=== PATIENT | male | born 1990 | race Caucasian/White ===

== ENCOUNTER 2019-03-24 05:42 | Inpatient (IN) | payer OTHER ==
[~2019-03-24] VITALS: Ht 172.7 cm; Wt 63.6 kg
[2019-03-24 06:53] LABS: HEMATOCRIT 42.3 % (42.0-52.0); HEMOGLOBIN 13.5 g/dl (13.5-17.5); MEAN CORPUSCULAR HEMOGLOBIN 27.4 pg (27.0-33.0); MEAN CORPUSCULAR HGB CONC 31.9 g/dl (32.0-36.5); MEAN CORPUSCULAR VOLUME 85.8 fl (80.0-96.0); PLATELET COUNT, AUTOMATED 390 10^3/uL (150-450); RED BLOOD COUNT 4.93 10^6/uL (4.30-6.10); WHITE BLOOD COUNT 5.8 10^3/uL (4.0-10.0)
[2019-03-24] MEDS ORDERED: ADACEL/BOOSTRIX VACCINE (DIPHTH/PERTUSS/ACELL/TETANUS)0.5ML SYR (90715) IM ONE (07:00)
[2019-03-24 07:08] LABS: AMPHETAMINES LEVEL URINE NEGATIVE (NEGATIVE); BARBITURATES URINE NEGATIVE (NEGATIVE); BENZODIAZEPINES URINE NEGATIVE (NEGATIVE); CANNABINOIDS URINE POSITIVE (NEGATIVE); COCAINE METABOLITE URINE NEGATIVE (NEGATIVE); METHADONE URINE NEGATIVE (NEGATIVE); OPIATES URINE NEGATIVE (NEGATIVE); PHENCYCLIDINE URINE NEGATIVE (NEGATIVE)
[2019-03-24 07:20] LABS: ACETAMINOPHEN LEVEL < 2.0 UG/ML (10.0-30.0); ALBUMIN 4.3 GM/DL (3.2-5.2); ALT/SGPT 20 U/L (12-78); BILIRUBIN,DIRECT 0.1 MG/DL (0.0-0.2); BILIRUBIN,TOTAL 0.4 MG/DL (0.2-1.0); BLOOD UREA NITROGEN 6 MG/DL (7-18); CALCIUM LEVEL 9.2 MG/DL (8.5-10.1); CARBON DIOXIDE LEVEL 25 MEQ/L (21-32); CHLORIDE LEVEL 101 MEQ/L (98-107); ETHYL ALCOHOL (ETHANOL) 0.115 % (0.000-0.010); GLOMERULAR FILTRATION RATE > 60.0 (>60); GLUCOSE, FASTING 126 MG/DL (70-100); POTASSIUM SERUM 3.4 MEQ/L (3.5-5.1); SALICYLATE LEVEL < 1.7 MG/DL (5.0-30.0); SODIUM LEVEL 138 MEQ/L (136-145); TOTAL PROTEIN 8.3 GM/DL (6.4-8.2)
[2019-03-24 07:55] LABS: FREE T4 1.44 NG/DL (0.76-1.46)
[2019-03-24 08:55] LABS: HEMOGLOBIN A1c 5.7 %
[2019-03-24] MEDS ORDERED: POTASSIUM CHLORIDE 10 MEQ SR TABLET PO ONE (09:30)
[2019-03-24 10:05] LABS: MAGNESIUM LEVEL 2.2 MG/DL (1.8-2.4)
[2019-03-24] MEDS ORDERED: traZODone 50 MG TAB PO PRN (10:45)
[2019-03-24] MEDS ORDERED: ACETAMINOPHEN TAB 650MG DOSE (2X325MG) PO PRN (10:45)
[2019-03-24] MEDS ORDERED: MOM 30ML SUSPENSION UDC PO PRN (10:45)
[2019-03-24] MEDS ORDERED: MAALOX 30 ML SUSP *UDC PO PRN (10:45)
[2019-03-24] MEDS ORDERED: LORazepam 2 MG TAB PO PRN (10:45)
[2019-03-24 12:55] VITALS: BP 126/71
--- NOTE | 2019-03-24 13:38 | CR.PDOC ---
General Date of Consultation: Mar 24, 2019 Referring Provider: A Consultation REASON FOR CONSULTATION/CHIEF COMPLAINT: Physical examination HISTORY OF PRESENT ILLNESS: Patient is 28 years old male w/o significant past medical history, who was admitted in the hospital after suicidal attempt. He denied any cardiovascular problem, breathing problem, GI problem or dysuria. He denies fever, chills, nausea, vomiting, shortness of breath, palpitations, diarrhea or dysuria ALLERGIES: Please see below. HOME MEDICATIONS: Please see below. PAST MEDICAL HISTORY: None PAST SURGICAL HISTORY: None FAMILY HISTORY: Father: Healthy Mother: Healthy SOCIAL HISTORY: Marital status and/or living arrangements: Single Tobacco use: Denied ETOH: Denied Illicit drug use: Denied IV drug use: Denied PHYSICAL EXAMINATION: VITAL SIGNS: Please see below. GENERAL APPEARANCE: NAD HEENT: PERRLA, EOMI RESPIRATORY: CTA CARDIOVASCULAR: S1-S2 ABDOMEN: Nontender nondistended EXTREMITIES: No swelling NEUROLOGICAL: Cranial nerves from 2-12 intact LABORATORY DATA: Please see below. ASSESSMENT/PLAN: Patient does not have any acute diseases besides of his psychiatric diseases. Vital Signs/I&O Vital Signs Date Time Temp Pulse Resp B/P (MAP) Pulse Ox O2 Delivery O2 Flow Rate FiO2 03/24/19 12:55 98.0 82 16 126/71 (89) 98 Room Air Laboratory Data Labs 24H Laboratory Tests 2 03/24/19 06:29: Nucleated Red Blood Cells % (auto) 0.0, Urine Opiates Screen NEGATIVE, Urine Methadone Screen NEGATIVE, Urine Barbiturates Screen NEGATIVE, Urine Phencyclidine Screen NEGATIVE, Urine Amphetamines Screen NEGATIVE, Urine Benzodiazepines Screen NEGATIVE, Urine Cocaine Metabolite Screen NEGATIVE, Urine Cannabinoids Screen POSITIVEH 03/24/19 06:31: Anion Gap 12, Glomerular Filtration Rate > 60.0, Estimated Mean Plasma Glucose 117H, Hemoglobin A1c 5.7, Calcium Level 9.2, Magnesium Level 2.2, Total Bilirubin 0.4, Direct Bilirubin 0.1, Aspartate Amino Transf (AST/SGOT) 19, Alanine Aminotransferase (ALT/SGPT) 20, Alkaline Phosphatase 104, Total Protein 8.3H, Albumin 4.3, Albumin/Globulin Ratio 1.08, Thyroid Stimulating Hormone (TSH) 6.340H, Free Thyroxine 1.44, Salicylates Level < 1.7L, Acetaminophen Level < 2.0L, Ethyl Alcohol Level 0.115H CBC/BMP Laboratory Tests 03/24/19 06:29 03/24/19 06:31 Allergies Coded Allergies: No Known Allergies (Unverified , 03/24/19) Home Medications No Active Prescriptions or Reported Meds ITZ PÉREZ DO Mar 24, 2019 13:37
[2019-03-24] MEDS: THIAMINE 100 MG TAB PO SCH ×2 (14:55→22:03)
[2019-03-24] MEDS: MULTIVITAMINS/MINERALS THERAP 1 TAB PO SCH (14:55)
[2019-03-24] MEDS: FOLIC ACID 1 MG TAB PO SCH (14:55)
[2019-03-24 15:28] VITALS: BP 127/72
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
[2019-03-24 21:00] VITALS: BP 120/66
[2019-03-24] MEDS: risperiDONE 1 MG TAB PO SCH (22:03)
[2019-03-24] MEDS: PARoxetine 20 MG TAB PO SCH (22:03)
[2019-03-25 06:20] VITALS: BP 139/70
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
[2019-03-25] MEDS: THIAMINE 100 MG TAB PO SCH ×2 (09:15→20:11)
[2019-03-25] MEDS: FOLIC ACID 1 MG TAB PO SCH (09:16)
[2019-03-25] MEDS: risperiDONE 1 MG TAB PO SCH ×2 (09:16→20:11)
[2019-03-25] MEDS: MULTIVITAMINS/MINERALS THERAP 1 TAB PO SCH (09:16)
[2019-03-25 09:21] VITALS: BP 127/87
[2019-03-25 18:00] VITALS: BP 123/75
[2019-03-25] MEDS: PARoxetine 20 MG TAB PO SCH (20:12)
[2019-03-26 06:30] VITALS: BP 142/78
[2019-03-26] MEDS ORDERED: RISP1TAB42 PO (09:03)
[2019-03-26] MEDS ORDERED: PARO20TA3 PO (09:03)
[2019-03-26] MEDS ORDERED: TRAZ-252 PO (09:03)
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
[2019-03-26] MEDS: FOLIC ACID 1 MG TAB PO SCH (09:47)
[2019-03-26] MEDS: THIAMINE 100 MG TAB PO SCH (09:47)
[2019-03-26] MEDS: MULTIVITAMINS/MINERALS THERAP 1 TAB PO SCH (09:47)
[2019-03-26] MEDS: risperiDONE 1 MG TAB PO SCH (09:48)
== END 2019-03-26 17:10 | disposition home or self-care (01) | DRG 885 ==
LOC: M ED 05:42 → M ED INP 10:37 → M PSY 12:50
PROVIDERS: ADMIT Psychiatry & Neurology Psychiatry; ATTEND Psychiatry & Neurology Psychiatry
DX: F32.3 Major depressive disorder, single episode, severe with psychotic features (principal); F43.12 Post-traumatic stress disorder, chronic; F41.0 Panic disorder [episodic paroxysmal anxiety]; F10.20 Alcohol dependence, uncomplicated; Z62.810 Personal history of physical and sexual abuse in childhood; Z62.811 Personal history of psychological abuse in childhood

== ENCOUNTER 2020-08-18 20:32 | Inpatient (IN) | payer OTHER ==
[~2020-08-18] VITALS: Ht 172.7 cm; Wt 60.6 kg
[~2020-08-18 20:32] MED LIST: PARO20TA3 PO; RISP1TAB42 PO; TRAZ-252 PO
[2020-08-18 20:58] LABS: HEMATOCRIT 47.3 % (42.0-52.0); HEMOGLOBIN 15.3 g/dl (13.5-17.5); MEAN CORPUSCULAR HEMOGLOBIN 28.6 pg (27.0-33.0); MEAN CORPUSCULAR HGB CONC 32.3 g/dl (32.0-36.5); MEAN CORPUSCULAR VOLUME 88.4 fl (80.0-96.0); PLATELET COUNT, AUTOMATED 382 10^3/uL (150-450); RED BLOOD COUNT 5.35 10^6/uL (4.30-6.10)
[2020-08-18] MEDS ORDERED: ALPRAZolam 0.25 MG TAB PO ONE (21:10)
[2020-08-18 21:39] LABS: AMPHETAMINES LEVEL URINE NEGATIVE (NEGATIVE); BARBITURATES URINE NEGATIVE (NEGATIVE); BENZODIAZEPINES URINE NEGATIVE (NEGATIVE); CANNABINOIDS URINE POSITIVE (NEGATIVE); COCAINE METABOLITE URINE NEGATIVE (NEGATIVE); METHADONE URINE NEGATIVE (NEGATIVE); OPIATES URINE NEGATIVE (NEGATIVE); PHENCYCLIDINE URINE NEGATIVE (NEGATIVE)
[2020-08-18 21:46] LABS: ACETAMINOPHEN LEVEL < 2.0 UG/ML (10.0-30.0); ALBUMIN 4.6 GM/DL (3.2-5.2); ALT/SGPT 16 U/L (12-78); BILIRUBIN,DIRECT 0.2 MG/DL (0.0-0.2); BILIRUBIN,TOTAL 0.5 MG/DL (0.2-1.0); BLOOD UREA NITROGEN 6 MG/DL (7-18); CALCIUM LEVEL 9.8 MG/DL (8.5-10.1); CARBON DIOXIDE LEVEL 27 MEQ/L (21-32); CHLORIDE LEVEL 106 MEQ/L (98-107); CREATININE FOR GFR 0.97 MG/DL (0.70-1.30); ETHYL ALCOHOL (ETHANOL) < 0.003 % (0.000-0.010); GLOMERULAR FILTRATION RATE > 60.0 (>60); GLUCOSE, FASTING 98 MG/DL (70-100); SALICYLATE LEVEL < 1.7 MG/DL (5.0-30.0); SODIUM LEVEL 140 MEQ/L (136-145); TOTAL PROTEIN 8.1 GM/DL (6.4-8.2)
[2020-08-18] MEDS ORDERED: traZODone 50 MG TAB PO PRN (22:00)
[2020-08-18] MEDS ORDERED: ACETAMINOPHEN TAB 650MG DOSE (2X325MG) PO PRN (22:00)
[2020-08-18] MEDS ORDERED: LORazepam 1 MG TAB PO PRN (22:00)
[2020-08-18] MEDS ORDERED: MAALOX 30 ML SUSP *UDC PO PRN (22:00)
[2020-08-18] MEDS ORDERED: MOM 30ML SUSPENSION UDC PO PRN (22:00)
[2020-08-18 22:37] LABS: RSV AMPLIFICATION NEGATIVE (NEGATIVE)
[2020-08-18 23:15] VITALS: BP 110/77
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
[2020-08-19 16:18] VITALS: BP 115/60
[2020-08-19] MEDS ORDERED: FLUoxetine 10 MG CAP PO ONE (19:00)
[2020-08-20 06:31] VITALS: BP 124/55
[2020-08-20] MEDS ORDERED: FLUoxetine 10 MG CAP PO ONE (15:00)
[2020-08-20 16:29] VITALS: BP 124/89
[2020-08-21 06:42] VITALS: BP 122/64
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
[2020-08-21] MEDS: FLUoxetine 20 MG CAP PO SCH (09:18)
[2020-08-21 19:25] VITALS: BP 138/88
[2020-08-22 06:27] VITALS: BP 104/56
--- NOTE | 2020-08-22 08:43 | MHIPNPDOC ---
[facility] Progress Note Progress Note DATE OF SERVICE: , The patient took his Prozac without any side effects and reports she is feeling much better this morning. He appears much brighter and smiling appropriately and denies any thoughts of suicide. He stated that he had a talk with his and [id number] and they are asking him to take a trip to [place] together and is quite happy about. He slept a good appetite is better and not getting any thoughts of suicide and feeling much more hopeful. His behavior is in good control. He has no physical complaints HISTORY: . VITAL SIGNS: See below. NEW TEST RESULTS: . CURRENT MEDICATIONS: See below. MENTAL STATUS EXAMINATION: Patient is a 30-year old male, who is , pleasant and cooperative. Speech: Is rational and coherent. Language skills are good. Thought processes including: , Productive and organized. Thought content: No suicidal or thoughts. Abstract reasoning, and computation: Good. Description of associations: Word organized. Description of abnormal or psychotic thoughts: Denies any hallucination. Judgment: Fair . Insight: fair.. Orientation: , Well oriented. Recent and remote memory: Good. Attention span and concentration: Christiano. Language: . Fund of knowledge: Average. Mood: Euthymic. Affect: [, Animated, appropriate]. DIAGNOSES: 1. . Adjustment disorder with mixed emotion 2. ., Rule out depressive disorder NOS 3. . ASSESSMENT:[Cooperating with the treatment and showing improvement] MANAGEMENT PLAN: [. Continue current treatment. Discharge planning for possibly tomorrow]. TIME SPENT: [20] minutes. Vital Signs Vital Signs Date Time Temp Pulse Resp B/P (MAP) Pulse Ox O2 Delivery O2 Flow Rate FiO2 08/22/20 06:27 98.8 72 16 104/56 (72) 98 Room Air Current Medications Current Medications Medications (Trade) Dose Ordered Sig/Ibrahima Route PRN Reason Start Time Stop Time Status Last Admin Dose Admin Acetaminophen (Tylenol Tab) 650 mg Q6HP PRN PO HEADACHE or DISCOMFORT 08/18/20 22:00 Al Hydrox/Mg Hydrox/Simethicone (Mylanta) 30 ml Q4HP PRN PO HEARTBURN/INDIGESTION 08/18/20 22:00 Fluoxetine HCl (PROzac) 20 mg DAILY PO 08/21/20 09:00 08/21/20 09:18 Home Med (Med Rec Complete!) ASDIRECTED XX 08/18/20 23:20 08/18/20 23:21 DC Lorazepam (Ativan) 1 mg Q4HP PRN PO ANXIETY 08/18/20 22:00 Magnesium Hydroxide (Milk Of Magnesia) 30 ml DAILYPRN PRN PO CONSTIPATION 08/18/20 22:00 Trazodone HCl (Desyrel) 50 mg QHSP PRN PO INSOMNIA 08/18/20 22:00 Allergies Coded Allergies: No Known Allergies (Unverified , 03/24/19) HERMINIA GOMEZ M.D. Aug 22, 2020 08:43
[2020-08-22] MEDS: FLUoxetine 20 MG CAP PO SCH (08:54)
--- NOTE | 2020-08-22 09:21 | MHCR ---
DATE: 08/18/2020 This is a video assessment. I am at home and he is at the inpatient unit at the hospital. He is seen in the presence of staff. CHIEF COMPLAINT: Feels stressed and suicidal. SUBJECTIVE: 30 years old, he is . He has four children, between the ages of 11 and 2. He had one previous hospitalization at [facility], this was March 2019. He was diagnosed with major depression with psychotic features, post-traumatic stress disorder, and some concern of alcohol use disorder. Please refer Dr. Porter' discharge summary from the time for details related to that admission and background history. He was at time put on Paxil, 20 mg daily, risperidone 1 mg at night, trazodone 50 mg at night as needed for insomnia. He was discharged on that. Says went to treatment, in fact was seen by Dr. Konx at the outpatient clinic, where he visits, please refer to her summary for details related to that. He has been there for a few visits, says did not like the medicine he was on or what the doctor was saying and he stopped going. Says he had sexual side effects secondary to the medicines. He stopped going, stopped the medicines and the side effects improved after a month. He feels the medicine helps him emotionally however. He has not been doing well for several months, more so lately and he has had nightmares related to previous trauma, he did not go into details regarding them, these come from childhood at the very least. He and his have been arguing lately, says he tends to get irritated more easily, and then had flashbacks, including seeing people being killed, this was related to his childhood in [place]. [place] quite stressful and this tend to escalate and he then went into traffic hoping to be hit, was not, says was possibly because people had slowed down. He was increasing distressed and says went to a local fire [place] and no one answered the door and then proceeded to go to the police department. He thought he might run into traffic again and then push an emergency button and was struck by the police, was brought to the hospital. Says has had nightmares, and that he feels distress talking about them as he has had to recently in the last few hours, and these sort of nightmares have worsened, and they tend to go up including the flashbacks when he is stressed. 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 Days when he is off, uses the cannabis periodically through the day. Says he and his has an appointment to see a couple's therapist in a couple of weeks. PAST PSYCHIATRIC HISTORY: Please refer to the previous summaries. He has been admitted here once before. For past history and background history, please refer to the previous summaries. Says now only occasionally drinks. He takes cannabis as described above. MENTAL STATUS EXAMINATION: He is neat, he is cooperative, a bit hesitant. No agitation. No psychomotor retardation. Coherent. Affect is restricted, but reactive. Appears anxious at times. Denies any thoughts of harming himself, then somewhat vague about it, no desires of hurting anyone else. Presently, does not appear to be internally preoccupied. No fluctuation of consciousness. Cognition grossly intact. His judgment is diminished as is insight. ASSESSMENT: 1. Posttraumatic stress disorder. 2. Major depressive disorder, recurrent. 3. History of trauma, particularly childhood. Has significant symptoms related to trauma, most likely meets criteria for posttraumatic stress disorder, as well as major depressive disorder. The symptoms related to past traumas are quite often triggered, he has been experiencing those and that has heighten his anxieties and also contributed to impulses, thoughts and behaviors. PLAN: He is admitted to the inpatient psychiatric unit, placed on precautions. We will look at obtaining collateral information and he will receive a medicine consult if indicated, he is encouraged to participate in activities in the unit. After discussing the risks, benefits, drawbacks and alternatives, which he understands, he will be started on Prozac at 10 mg daily, to be increased to 20 mg daily, possibly further to help address his current symptoms including those related to trauma. We will look at using SSRI given these concerns. It was also suggested starting at the lower dose to help with tolerability. He has used trazodone with good affect in the past, it should continue with this, 50 mg at night as needed. I do not feel imperative need to resume an atypical antipsychotic for now. He will be discharged with follow up once he is stable I anticipate a 5 to 7 day stay. My assessment took 30 minutes. BETINA
--- NOTE | 2020-08-22 11:44 | MHIPN ---
[facility] PROGRESS NOTE DATE: 08/20/2020 VITAL SIGNS: Blood pressure 124/89, pulse 75, temperature 98.3. CHIEF COMPLAINT: Feels anxious. SUBJECTIVE: Seen for followup. Indicates has been feeling anxious and depressed, though feels may have had a bit better sleep, but nightmares toward the early part of the morning. Had spoken with his . Says that went well. Appetite is fair. MENTAL STATUS EXAMINATION: He is neat. He is cooperative. There is no agitation. No psychomotor retardation. Affect restricted but reactive. A bit more relaxed then yesterday. No overt suicidal thoughts. Vague on plans. No homicidal ideas or intents. No evidence of any psychosis. Cognition grossly intact. His judgment and insight compromised. ASSESSMENT: 1. Posttraumatic stress disorder. 2. Major depressive disorder. Remains depressed and anxious. PLAN: He has been started on Prozac 10 mg daily. We will increase it to 20 mg daily. Has tolerated it well so far, though he has only had one dose. He is to be encouraged to participate in activities in the unit. Further recommendations will be made depending on the clinical picture.
[2020-08-22 18:12] VITALS: BP 109/85
[2020-08-23 06:00] VITALS: BP 135/63
[2020-08-23] MEDS ORDERED: FLUO20CA22 PO (08:11)
--- NOTE | 2020-08-23 08:25 | MHDSPDOC ---
[facility] Discharge Summary Discharge Summary DATE OF ADMISSION: August 18, 2020 at 23:00 DATE OF DISCHARGE: 08/23/2020 DISCHARGE DIAGNOSES: 1. . Major depression, recurrent 2. . PTSD REASON FOR ADMISSION: 30-year-old man with a past history of depression and PTSD admitted due to increasing depression and vague suicidal thoughts of walking into traffic. Patient reports no history of the suicide attempt, but had one prior admission with a similar episode and has not been receiving any outpatient treatment at this time. He is denying any clear precipitant, but apparently had some conflict at home with his , but does not wish to elaborate. CONSULTANTS INVOLVED: None TREATMENT AND PROGRESS ON THE UNIT : Patient was seen for daily supportive therapy and restarted on his Prozac. 10 mg daily, increased to 20 mg daily. He has fully cooperated with with the treatment and reports marked improvement in his mood and anxiety. He is becoming much more animated, pleasant, productive, and denies any suicidal thoughts. He has been in contact with his and apparently has a plan to travel to [place] in the next week and reports feeling positive and hopeful.. HOSPITAL COURSE: , He has maintained a good contact and in good control, pleasant and cooperative and didn't exhibit any dangerous behavior and does not appear to be suicidal at all.. He is willing to continue his medication and accept outpatient follow-up treatment DISCHARGE ASSESSMENT: Improved, stable and not suicidal MENTAL STATUS EXAMINATION ON DISCHARGE: Patient is a 30]-year old male, who is , pleasant and cooperative. Speech is , rational, productive. Language skills are good. Thought processes including: , Coherent. Thought content: . No suicidal thoughts. Abstract reasoning, and computation: Good. Description of associations: Well-organized. Description of abnormal or psychotic thoughts: None. Judgment: Fair. Insight: Good. Orientation to , well oriented. Recent and remote memory: Good. Attention span and concentration: Good. Language: . Fund of knowledge: Average. Mood: Euthymic. Affect: , Appropriate. MEDICATIONS ON DISCHARGE: - , Prozac 20 mg daily for 7 days with 3 refills. - for . - for . PLAN/FOLLOWUP ARRANGEMENTS: Arranged by the material planner. The amount of time spent in the coordination of care for this patient was approximately 40 minutes. ETOH/Disorder Med Rx ETOH/DRUG DISORDER RX: N/A Vital Signs/I&Os Vital Signs Date Time Temp Pulse Resp B/P (MAP) Pulse Ox O2 Delivery O2 Flow Rate FiO2 08/22/20 18:12 99.2 58 18 109/85 (93) 08/22/20 06:27 98 Room Air Medications Scheduled Fluoxetine Hcl (Fluoxetine HCl) 20 Mg Capsule, 20 MG PO DAILY for depression for 7 Days, #7 Allergies Coded Allergies: No Known Allergies (Unverified , 03/24/19) HERMINIA GOMEZ M.D. Aug 23, 2020 08:25
[2020-08-23] MEDS: FLUoxetine 20 MG CAP PO SCH (09:31)
== END 2020-08-23 12:37 | disposition home or self-care (01) | DRG 885 ==
LOC: M ED 20:32 → M PSY 23:00
PROVIDERS: ADMIT Psychiatry & Neurology Psychiatry; ATTEND Psychiatry & Neurology Psychiatry
DX: F33.0 Major depressive disorder, recurrent, mild (principal); R45.851 Suicidal ideations; K59.00 Constipation, unspecified; Z91.14 Patient's other noncompliance with medication regimen; F43.10 Post-traumatic stress disorder, unspecified; F12.10 Cannabis abuse, uncomplicated; Z63.0 Problems in relationship with spouse or partner; Z20.822 Contact with and (suspected) exposure to COVID-19

== ENCOUNTER 2020-09-10 12:43 | Emergency (ER) | payer OTHER ==
[~2020-09-10] VITALS: Ht 172.7 cm; Wt 63.6 kg
[~2020-09-10 12:43] MED LIST changes: +FLUO20CA22 PO
[2020-09-10] MEDS ORDERED: PROZ20CA11 PO (13:00)
[2020-09-10 13:46] LABS: HEMOGLOBIN 14.5 g/dl (13.5-17.5); MEAN CORPUSCULAR HEMOGLOBIN 28.8 pg (27.0-33.0); MEAN CORPUSCULAR VOLUME 87.3 fl (80.0-96.0); PLATELET COUNT, AUTOMATED 392 10^3/uL (150-450); RED BLOOD COUNT 5.04 10^6/uL (4.30-6.10); WHITE BLOOD COUNT 6.1 10^3/uL (4.0-10.0)
[2020-09-10 14:24] LABS: ACETAMINOPHEN LEVEL < 2.0 UG/ML (10.0-30.0); ALBUMIN 4.5 GM/DL (3.2-5.2); ALT/SGPT 16 U/L (12-78); BILIRUBIN,DIRECT 0.2 MG/DL (0.0-0.2); BILIRUBIN,TOTAL 0.7 MG/DL (0.2-1.0); BLOOD UREA NITROGEN 11 MG/DL (7-18); CALCIUM LEVEL 9.1 MG/DL (8.5-10.1); CARBON DIOXIDE LEVEL 26 MEQ/L (21-32); CHLORIDE LEVEL 107 MEQ/L (98-107); CREATININE FOR GFR 0.98 MG/DL (0.70-1.30); ETHYL ALCOHOL (ETHANOL) < 0.003 % (0.000-0.010); GLOMERULAR FILTRATION RATE > 60.0 (>60); GLUCOSE, FASTING 103 MG/DL (70-100); POTASSIUM SERUM 4.1 MEQ/L (3.5-5.1); SODIUM LEVEL 140 MEQ/L (136-145); TOTAL PROTEIN 7.8 GM/DL (6.4-8.2)
[2020-09-10 14:59] LABS: AMPHETAMINES LEVEL URINE NEGATIVE (NEGATIVE); BARBITURATES URINE NEGATIVE (NEGATIVE); BENZODIAZEPINES URINE NEGATIVE (NEGATIVE); CANNABINOIDS URINE POSITIVE (NEGATIVE); COCAINE METABOLITE URINE NEGATIVE (NEGATIVE); METHADONE URINE NEGATIVE (NEGATIVE); OPIATES URINE NEGATIVE (NEGATIVE); PHENCYCLIDINE URINE NEGATIVE (NEGATIVE)
[2020-09-10 20:55] VITALS: BP 133/76
== END 2020-09-10 21:00 | disposition home or self-care (01) ==
LOC: M ED 12:43
DX: F43.0 Acute stress reaction (principal); F33.9 Major depressive disorder, recurrent, unspecified

== ENCOUNTER 2021-05-29 09:08 | Emergency (ER) | payer OTHER ==
[~2021-05-29] VITALS: Ht 172.7 cm; Wt 63.6 kg
[~2021-05-29 09:08] MED LIST changes: +ATOR1TAB21 PO; +LITH150C PO; +LITH300C PO; +NICO21PAT TD; +PRAZ1CAP46 PO; +PROZ20CA11 PO
[2021-05-29 09:09] VITALS: BP 117/70
[2021-05-29] MEDS ORDERED: ERYT5OIN25 OP (12:18)
== END 2021-05-29 12:40 | disposition home or self-care (01) ==
LOC: M ED 09:08
DX: H00.016 Hordeolum externum left eye, unspecified eyelid (principal); H01.006 Unspecified blepharitis left eye, unspecified eyelid; F33.9 Major depressive disorder, recurrent, unspecified; F41.9 Anxiety disorder, unspecified; F43.10 Post-traumatic stress disorder, unspecified; Z91.030 Bee allergy status; Z79.899 Other long term (current) drug therapy